=== PATIENT | female | born 1990 | race Caucasian/White ===

== ENCOUNTER 2018-01-09 08:58 | Emergency (ER) | payer MEDICAID, SELFPAY ==
--- NOTE | 2018-01-09 10:49 | RAD ---
LEFT KNEE FOUR VIEWS: HISTORY: A 27-year-old female with a history of left knee swelling. COMPARISON: None. FINDINGS: No evidence for acute fracture or dislocation. There is increased density in the suprapatellar reces s, evidence for possible joint effusion. IMPRESSION: Evidence for suprapatellar increased density and joint effusion. No acute fracture or dislocation. If this swelling is secondary to prior trauma or internal derangement is suspected clinically, consid er nonemergent follow-up MRI. POS: [place]
== END 2018-01-09 09:55 | disposition home or self-care (01) ==
LOC: MADERS 08:58
DX: M25.462 Effusion, left knee (principal); I10 Essential (primary) hypertension

== ENCOUNTER 2020-03-04 08:55 | Emergency (ER) | payer SELFPAY ==
[2020-03-04] MEDS ORDERED: Famotidine 20 MG TAB ONE (09:20)
[2020-03-04] MEDS ORDERED: Loratadine 10 MG TAB ONE (09:20)
[2020-03-04] MEDS ORDERED: Dexamethasone 10 MG/ML VIAL ONE (09:20)
== END 2020-03-04 09:46 | disposition home or self-care (01) ==
LOC: MADERS 08:55
DX: L50.0 Allergic urticaria (principal); Z87.891 Personal history of nicotine dependence
CPT/HCPCS: 96372; 99283; J1100

== ENCOUNTER 2021-02-25 11:29 | Emergency (ER) | payer SELFPAY ==
[2021-02-25 12:14] LABS: Bilirubin Negative (Negative); Blood, Urine Negative (Negative); Clarity Clear (Clear); Glucose, Urine (Dipstick) 250 mg/dL (Negative); Ketone, Urine Trace mg/dL (Negative); Leukocyte Large (Negative); Nitrite Positive (Negative); Protein, Urine (Dipstick) 100 mg/dL (Neg-Trace)
[2021-02-25 12:22] LABS: Pregnancy Test - Urine (BHCG) Negative (Negative); Pregu Control Background? CLEAR/WHITE (CLR/WHITE); Pregu Control Bar Appear? YES (CONTROL BAR); Specific Gravity 1.016 (1.002-1.036)
[2021-02-25 12:23] LABS: Bacteria/HPF 2+ HPF (None Seen); RBC/HPF 0-3 HPF (0-3); Specific Gravity, Urine 1.016 (1.002-1.036)
[2021-02-25 12:24] LABS: WBC/HPF 21-50 HPF (0-3)
[2021-02-25] MEDS ORDERED: Lidocaine 1% w/Epinephrine 1:100K 20 ML VIAL ONE (13:01)
[2021-02-25] MEDS ORDERED: cefTRIAXone\\ROCEPHIN 1 GM VIAL ONE (13:01)
== END 2021-02-25 13:27 | disposition home or self-care (01) ==
LOC: MADERS 11:29
DX: N39.0 Urinary tract infection, site not specified (principal); Z87.891 Personal history of nicotine dependence
CPT/HCPCS: 81003; 81015; 81025; 87077; 87086; 87186; 96372; 99284; J0696

== ENCOUNTER 2021-03-25 13:11 | Emergency (ER) | payer SELFPAY ==
[2021-03-25 14:22] LABS: Bilirubin Small (Negative); Blood, Urine Negative (Negative); Glucose, Urine (Dipstick) 250 mg/dL (Negative); Ketone, Urine 15 mg/dL (Negative); Leukocyte Large (Negative); Nitrite Positive (Negative); Protein, Urine (Dipstick) 100 mg/dL (Neg-Trace)
[2021-03-25 14:24] LABS: Clarity Hazy (Clear)
[2021-03-25 14:25] LABS: Pregnancy Test - Urine (BHCG) Negative (Negative); Pregu Control Background? CLEAR/WHITE (CLR/WHITE); Pregu Control Bar Appear? YES (CONTROL BAR)
[2021-03-25 14:29] LABS: RBC/HPF None Seen HPF (0-3)
[2021-03-25 14:30] LABS: Bacteria/HPF Rare-Few HPF (None Seen); Mucous/LPF 1+ LPF (<2+); Squamous Epithelial 0-3 HPF (0-3)
== END 2021-03-25 15:48 | disposition home or self-care (01) ==
LOC: MADERS 13:11
DX: N39.0 Urinary tract infection, site not specified (principal); Z87.891 Personal history of nicotine dependence
CPT/HCPCS: 81001; 81025; 87086; 99284

== ENCOUNTER 2022-01-23 08:05 | Emergency (ER) | payer SELFPAY | END 2022-01-23 09:36 | disposition home or self-care (01) | LOC: MADERS 08:05 | DX: J06.9 Acute upper respiratory infection, unspecified (principal); Z87.891 Personal history of nicotine dependence | CPT/HCPCS: 87081; 87430; 87804; 99283 ==

== ENCOUNTER 2023-12-15 17:12 | Emergency (ER) | payer SELFPAY ==
[2023-12-15 17:32] LABS: Bilirubin Negative (Negative); Blood, Urine Negative (Negative); Clarity Clear (Clear); Glucose, Urine (Dipstick) Negative (Negative); Ketone, Urine Negative (Negative); Leukocyte Trace (Negative); Nitrite Positive (Negative); Protein, Urine (Dipstick) Negative (Neg-Trace); Urobilinogen 0.2 mg/dL (Less than 2)
[2023-12-15 17:35] LABS: Pregnancy Test - Urine (BHCG) Negative (Negative); Pregu Control Background? CLEAR/WHITE (CLR/WHITE); Pregu Control Bar Appear? YES (CONTROL BAR)
[2023-12-15 17:41] LABS: Bacteria/HPF Rare-Few HPF (None Seen); CAUTI Indications for Culture Acute Hematuria; RBC/HPF 0-3 HPF (0-3); Squamous Epithelial 0-3 HPF (0-3); Urine Culture Reflex No No
== END 2023-12-15 17:41 | disposition home or self-care (01) ==
LOC: MADERS 17:12
DX: N39.0 Urinary tract infection, site not specified (principal); F17.210 Nicotine dependence, cigarettes, uncomplicated
CPT/HCPCS: 81001; 81025; 87077; 87086; 87186; 99283

== ENCOUNTER 2023-12-23 15:17 | Emergency (ER) | payer SELFPAY ==
[2023-12-23] MEDS ORDERED: Ketorolac Tromethamine 60 MG/2 ML VIAL ONE (15:50)
== END 2023-12-23 16:45 | disposition home or self-care (01) ==
LOC: MADERS 15:17
DX: M19.09 Primary osteoarthritis, other specified site (principal); F17.210 Nicotine dependence, cigarettes, uncomplicated
CPT/HCPCS: 70486; 96372; J1885

== ENCOUNTER 2024-11-11 13:30 | Emergency (ER) | payer SELFPAY ==
[2024-11-11 14:09] LABS: Pregnancy Test - Urine (BHCG) Negative (Negative); Pregu Control Background? CLEAR/WHITE (CLR/WHITE); Pregu Control Bar Appear? YES (CONTROL BAR)
[2024-11-11 14:15] LABS: Bacteria/HPF Rare-Few HPF (None Seen); CAUTI Indications for Culture Dysuria,urgency,freq; Urine Culture Reflex Yes Yes; WBC/HPF 21-50 HPF (0-3)
== END 2024-11-11 15:40 | disposition home or self-care (01) ==
LOC: MADERS 13:30
DX: R30.0 Dysuria (principal); F17.210 Nicotine dependence, cigarettes, uncomplicated
CPT/HCPCS: 81001; 81025; 87086; 99283